=== PATIENT | female | born 1980 | race Caucasian/White ===

== ENCOUNTER 2021-08-23 22:09 | Emergency (ER) | payer OTHER ==
[~2021-08-23 22:09] MED LIST: FLEXERIL10 MG PO; IBUPROFEN800 MG PO; MEDROL 4MG DOSEP4 MG PO; NORCO 5-325 TA1 EACH PO; ONDANSETRON HCL4 MG PO
[2021-08-24] MEDS ORDERED: NORCO 5-325 TA1 EACH PO (01:51)
== END 2021-08-24 01:55 | disposition home or self-care (01) ==
LOC: FER 22:09
DX: S69.92XA Unspecified injury of left wrist, hand and finger(s), initial encounter (principal); W19.XXXA Unspecified fall, initial encounter; Y92.009 Unspecified place in unspecified non-institutional (private) residence as the place of occurrence of the external cause
CPT/HCPCS: 73110